=== PATIENT | female | born 1960 | race African-American/Black ===

== ENCOUNTER 2022-11-18 09:31 | Emergency (ER) | payer MEDICARE, MEDICAID ==
[~2022-11-18] VITALS: Ht 165.1 cm; Wt 75.0 kg
[2022-11-18 09:32] VITALS: BP 155/82; PULSE 72; RESP 19; TEMP 98; O2SAT 100
[2022-11-18] MEDS ORDERED: MAGNESIUM/ALUMINUM HYDROXIDE/SIMETHICONE 30ML UDC PO STA (10:35)
[2022-11-18] MEDS ORDERED: ONDANSETRON 4MG ODT PO ONE (10:45)
[2022-11-19] MEDS ORDERED: ATOR20TA65 MT (17:36)
[2022-11-19] MEDS ORDERED: EMPA10TA PO (17:36)
[2022-11-19] MEDS ORDERED: OXYB5TAB17 PO (17:36)
[2022-11-19] MEDS ORDERED: AMLO10TA80 PO (17:36)
== END 2022-11-18 12:50 | disposition left against medical advice (07) ==
LOC: ER 09:35
DX: K86.1 Other chronic pancreatitis (principal); I10 Essential (primary) hypertension; E11.9 Type 2 diabetes mellitus without complications
CPT/HCPCS: 74176; 93005; 99284